=== PATIENT | female | born 1945 | race African-American/Black ===

== ENCOUNTER 2022-06-28 15:20 | Emergency (ER) | payer OTHER ==
[~2022-06-28] VITALS: Ht 162.6 cm; Wt 64.0 kg
[2022-06-28] MEDS ORDERED: FAMOTIDINE 20MG/2ML VIAL IV STA (15:32)
[2022-06-28] MEDS ORDERED: DIPHENHYDRAMINE 50MG/ML VIAL IV ONE (15:45)
[2022-06-28] MEDS ORDERED: METHYLPREDNISOLONE SOD SUCC 125 MG/2 ML VIAL IV ONE (15:45)
[2022-06-28] MEDS ORDERED: SODIUM CHLORIDE 0.9% 500 ML IV ONE (16:30)
[2022-06-28 17:00] LABS: BASOPHILS % 0.3 % (0.0-2.0); EOSINOPHILS % 2.3 % (0.0-5.0); HEMATOCRIT. 45.6 % (36.0-48.0); HEMOGLOBIN. 15.4 g/dL (12.0-16.0); LYMPHOCYTES % 20.7 % (20.0-50.0); MEAN CORPUSCULAR HEMOGLOBIN 28.2 pg (28.0-32.0); MEAN CORPUSCULAR VOLUME 83.7 fL (81.0-99.0); MEAN PLATELET VOLUME 8.7 fl (7.4-10.4); MONOCYTES % 8.8 % (2.0-8.0); NEUTROPHILS % 67.9 % (40.0-76.0); PLATELET 240 x1000/uL (130-400); RED BLOOD CELL COUNT 5.45 mill/uL (4.2-5.4); RED CELL DISTRIBUTION WIDTH 14.8 % (11.6-14.6)
[2022-06-28 17:15] LABS: CHLORIDE 104 mEq/L (98-107)
[2022-06-28 18:42] VITALS: BP 158/82
== END 2022-06-28 19:28 | disposition short-term general hospital (02) ==
LOC: ER 15:20 → CANBEDREQ 17:47 → ER 19:28
DX: T78.01XA Anaphylactic reaction due to peanuts, initial encounter (principal); K14.0 Glossitis; R06.00 Dyspnea, unspecified; R07.89 Other chest pain; X58.XXXA Exposure to other specified factors, initial encounter; Y93.89 Activity, other specified; Z20.822 Contact with and (suspected) exposure to COVID-19; I10 Essential (primary) hypertension; Y92.89 Other specified places as the place of occurrence of the external cause
CPT/HCPCS: 36415; 71045; 80053; 85025; 87426; 96361; 96374; 96375; 99284; C9803; J1200; J2930; J3490; J7040